=== PATIENT | male | born 1955 | race Caucasian/White ===

== ENCOUNTER 2017-09-01 12:48 | Emergency (ER) | payer OTHER, BC ==
[~2017-09-01] VITALS: Ht 185.4 cm; Wt 100.0 kg
[2017-09-01 12:51] VITALS: BP 160/80; RESP 16; O2SAT 98
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
[2017-09-01] MEDS ORDERED: ATOR10TA15 PO (13:14)
[2017-09-01] MEDS ORDERED: METO50TA11 PO (13:14)
[2017-09-01] MEDS ORDERED: LISI-515 PO (13:14)
[2017-09-01] MEDS ORDERED: ORPHENADRINE INJ 60 MG/2 ML AMP IM ONE (13:15)
[2017-09-01] MEDS ORDERED: KETOROLAC TROMETHAMINE 60 MG/2 ML (IM) VIAL IM ONE (13:15)
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
[2017-09-01] MEDS ORDERED: CYCL1TAB29 PO (15:02)
[2017-09-01] MEDS ORDERED: IBUP800T23 PO (15:02)
== END 2017-09-01 15:21 | disposition home or self-care (01) ==
LOC: NEPD 12:48
DX: S16.1XXA Strain of muscle, fascia and tendon at neck level, initial encounter (principal); M79.1 Myalgia; V53.5XXA Driver of pick-up truck or van injured in collision with car, pick-up truck or van in traffic accident, initial encounter; Y92.411 Interstate highway as the place of occurrence of the external cause
CPT/HCPCS: 72125; 72131; 73030; 96372; 99285; J1885; J2360